=== PATIENT | male | born 1990 | race Caucasian/White ===

== ENCOUNTER → 2018-02-17 | Outpatient (CLI) | payer BC ==
--- NOTE | 2018-02-17 08:38 | DIAGNOSTIC IMAGING REPORT ---
(TESTICULAR) SCROTUM-CONT CLINICAL HISTORY: 28 years-old Male presenting with LEFT SIDED TESTICULAR PAIN. TECHNIQUE: Real-time grayscale and color and spectral Doppler ultrasound imaging of the scrotum was performed. COMPARISON: None. FINDINGS: Right testis: Normal echogenicity and echotexture. Testis measures 5.1 x 2.8 x 2.4 cm. Normal color Doppler flow and arterial and venous waveforms in the testicular parenchyma. Epididymal head normal. No hydrocele. No varicocele. Left testis: Normal echogenicity and echotexture. Testis measures 5.8 x 3.3 x 2.5 cm. Normal color Doppler flow and arterial and venous waveforms in the testicular parenchyma. Diminutive cyst noted in the epididymal head, either epididymal cyst or spermatocele. No hydrocele. No varicocele. Symmetric perfusion of the testes. IMPRESSION: No evidence of testicular torsion. Electronically signed by: Shine Chen M.D. 02/17/2018 8:36 AM Dictated Date/Time: 02/17/2018 8:35 AM
--- NOTE | 2018-02-17 08:39 | DIAGNOSTIC IMAGING REPORT ---
ABDOMEN FOR HERNIA CLINICAL HISTORY: 28 years-old Male presenting with left groin pain, concern for hernia. TECHNIQUE: Real-time grayscale Doppler ultrasound imaging of the left inguinal region was performed for a focused evaluation at the site of clinical concern. COMPARISON: None. FINDINGS: In the region of the left groin, a reducible fat-containing hernia is suggested. No associated fluid. No evidence of bowel within the apparent hernia sac. IMPRESSION: 1. Findings suggest reducible fat-containing left inguinal hernia. Electronically signed by: Shine Chen M.D. 02/17/2018 8:37 AM Dictated Date/Time: 02/17/2018 8:36 AM
== END | disposition home or self-care (01) ==
LOC: C.ULTR 07:42
PROVIDERS: ATTEND Family Medicine
DX: N50.812 Left testicular pain (principal)

== ENCOUNTER 2018-03-09 05:17 | Observation (INO) | payer BC ==
[2018-03-03 13:50] VITALS: BMI 23.0
[~2018-03-09] VITALS: Ht 180.3 cm; Wt 74.0 kg
[2018-03-09] VITALS (15 sets, daily range): BP systolic 114–140; BP diastolic 53–76; PULSE 60–97; TEMP 36.6–36.9; O2SAT 94–99; Ht 180.3 cm; Wt 74.0 kg
[~2018-03-09 05:17] MED LIST: TRIA1SPR4 NAE
[2018-03-09] MEDS ORDERED: CEFAZOLIN 2000MG IV PUSH 15 ML IV SCH (06:00)
[2018-03-09] MEDS: LACTATED RINGER'S 1000ML 1,000 ML IV SCH ×7 (06:22→23:27)
[2018-03-09] MEDS ORDERED: MIDAZOLAM HCL 1 MG/ML 2ML VIAL ONE (06:28)
[2018-03-09] MEDS ORDERED: FENTANYL CITRATE INJ 50 MCG/1 ML 2 ML VIAL ONE (06:29)
[2018-03-09] MEDS ORDERED: ONDANSETRON INJ 2 MG/ML 2 ML VIAL ONE (06:32)
[2018-03-09] MEDS ORDERED: DEXAMETHASONE SOD INJ 4 MG/ML VIAL ONE (06:33)
[2018-03-09] MEDS ORDERED: LIDOCAINE HCL 2% 2 ML VIAL (20MG/ML) ONE (06:36)
[2018-03-09] MEDS ORDERED: PROPOFOL IV EMULSION 10 MG/ML 20 ML VIAL ONE (06:37)
[2018-03-09] MEDS ORDERED: BUPIVACAINE 0.5 % 5 MG/1 ML PF 10ML VIAL ONE (06:38)
--- NOTE | 2018-03-09 07:03 | History & Physical Bridge Note ---
H&P Re-Evaluation Bridge Note: I have examined the patient, reviewed the History & Physical and in the interval since the performance of the History & Physical I have noted the following changes of clinical significance: No changes noted
[2018-03-09] MEDS ORDERED: ONDANSETRON INJ 2 MG/ML 2 ML VIAL IV PRN ×3 (07:30→15:30)
[2018-03-09] MEDS ORDERED: HYDROmorphone INJ 0.5 MG/0.5 ML SYR IV PRN ×2 (07:30→15:30)
[2018-03-09] MEDS ORDERED: ATROPINE SULFATE 0.1 MG/ML 5ML SYR IV PRN (07:30)
[2018-03-09] MEDS ORDERED: EpHEDrine SULFATE INJ 50 MG/ML AMP IV PRN (07:30)
[2018-03-09] MEDS ORDERED: KETOROLAC TROMETHAMINE 30 MG/ML VIAL ONE (07:38)
[2018-03-09] MEDS ORDERED: GLYCOPYRROLATE INJ 0.2 MG/ML VIAL ONE (07:42)
[2018-03-09] MEDS ORDERED: NEOSTIGMINE METHYLSULFATE 5 MG/5 ML SYR ONE (07:42)
--- NOTE | 2018-03-09 08:35 | [facility] Post Operative Brief Note ---
Immediate Operative Summary Operative Date Mar 09, 2018. Pre-Operative Diagnosis Left Inguinal Hernia, Umbilical Hernia, possible right inguinal herina Post-Operative Diagnosis Bilateral Inguinal hernias, Umbilical herina Procedure(s) Performed Laparoscopic repair of Bilateral Inguinal Hernias with Mesh Open Repair of Umbilical Hernia Surgeon Dr. Vargas Tavares Sexual Assault Response Coordinator Surgeon(s) Shiva Valdez PA-c Estimated Blood Loss 4 ml Findings Consistent with Post-Op Diagnosis Left indirect hernia, right cord lipoma. Umbilical defect closed primarily Specimens None per surgeon Drains None Anesthesia Type General Complication(s) none Disposition Accompanied Pt To Recover: no Disposition: Recovery Room / PACU
--- NOTE | 2018-03-09 08:39 | [facility] Operative Report ---
Operative Report Operative Date Mar 09, 2018. Pre-Operative Diagnosis Left Inguinal Hernia, Umbilical Hernia, possible right inguinal herina Post-Operative Diagnosis Bilateral inguinal hernias, umbilical hernia Procedure(s) Performed Laparoscopic bilateral inguinal hernia repair (TEP), umbilical hernia repair Surgeon Dr. Vargas Tavares Cap And Hat Production Supervisor Surgeon(s) Shiva Valdez PA-c Estimated Blood Loss 4 ml Findings Indirect left inguinal hernia, right cord lipoma, umbilical hernia repaired primarily Specimens None per surgeon Drains None Anesthesia General Complication(s) None Disposition Recovery Room / PACU Indications 28-year-old male with left inguinal hernia and umbilical hernia, plan for laparoscopic left inguinal hernia repair, possible right, open umbilical hernia repair. The risks of the procedure were discussed, all questions were answered , and the patient agreed to proceed with surgery as planned. Description of Procedure The patient was properly identified, consented, and taken to the operating room where he was placed in the supine position. General endotracheal anesthesia was induced. SCDs and a safety belt were placed. A bear catheter was placed. Preoperative antibiotics were administered. The patient's groins and abdomen were prepped and draped in the standard sterile fashion. Surgical timeout was performed and all parties were in agreement that this was the correct patient and procedure to be performed and we continued as planned. A curvilinear infraumbilical incision was made with electrocautery and deepened down to the fascia with blunt dissection. A transverse incision was made in the anterior rectus sheath on the right. The rectus muscle was pulled laterally exposing the posterior rectus sheath. A large Selam was used to bluntly dissect the preperitoneal space down to the pubic symphysis. This was then replaced with a laparoscopic preperitoneal dissection balloon, which was inflated under direct visualization and held in place for approximately 30 seconds. This was then removed and the preperitoneal space was insufflated with carbon dioxide which the patient tolerated without incident. Two 5 mm ports were then placed in the midline. Dissection started on the left, beginning laterally at the anterior superior iliac spine. Luis's ligament was then dissected medially. The cord structures were circumferentially dissected. A small indirect hernia was noted. It was dissected away from the cord structures. The contralateral side was then dissected in a similar manner, and cord lipoma and small indirect hernia was noted. Progrip mesh was placed on the bilaterally and covered the direct, indirect, and femoral spaces. The mesh was held in place, the ports were removed, and the space was allowed to collapse. The anterior rectus sheath fascia was closed with 0 Vicryl suture. The umbilical stalk was circumferentially dissected with a Selam, and divided below the level of the skin. A 0.7 cm fascial defect was encountered. The hernia was reduced. The fascia anteriorly and posteriorly was cleared of investing tissue for several centimeters. Hemostasis was achieved within the wound. The hernia defect was closed primarily with interrupted 0 Nurolon sutures. The wound was irrigated and hemostasis confirmed. The umbilicus was tacked down to the fascia with 3-0 Vicryl sutures. Local anesthetic in the form of 0.5% Marcaine was injected in the fascia and along the skin incision. The skin was closed with interrupted 3-0 Vicryl deep dermal sutures, followed by 4-0 Monocryl running subcuticular suture. Dermabond was placed over the wound. The skin of the remaining port sites were closed with 4-0 Monocryl subcuticular suture, and Dermabond was placed over the incisions. The patient was extubated in the operating room and taken to the PACU for recovery without apparent incident. Any air in the scrotum was reduced, and the testicles were confirmed to be in the scrotum. All sponge, instrument, and needle counts were correct at the conclusion of the procedure. The patient tolerated the procedure well. The physician's boiler assistant operator was present and scrubbed for the entire case. He was essential in positioning the patient, prepping and draping, retraction and exposure, driving the laparoscope, closure of the incisions, placement of the dressings. I attest to the content of the Intraoperative Record and any orders documented therein. Any exceptions are noted below.
[2018-03-09] MEDS ORDERED: OXYCODONE/ACETAMINOPHEN 5-325 TAB PO PRN ×2 (08:45→15:30)
[2018-03-09] MEDS ORDERED: MoRPHine SULFATE 4 MG/ML 1 ML CARP\\VIAL IV PRN (08:45)
[2018-03-09] MEDS ORDERED: OXYC-57 PO (08:45)
--- NOTE | 2018-03-09 08:47 | Discharge Instructions ---
Discharge Instructions Date of Service Mar 09, 2018. Visit Reason for Visit: Left Inguinal Hernia, Umbilical Hernia Discharge Discharge Diagnosis / Problem: hernia repair Discharge Goals Goal(s): Decrease discomfort Activity Recommendations Activity Limitations: as noted below Lifting Limitations: no more than 10 pounds Shower/Bathe: no limitations Driving or Machine Use: 1 week Anesthesia . Post Anesthesia Instructions: If you have had General Anesthesia or IV Sedation: * Do not drive today. * Resume driving when surgeon permits. * Do not make important decisions or sign legal documents today. * Call surgeon for: 1. Temperature elevations greater than 101 degrees F. 2. Uncontrollable pain. 3. Excessive bleeding. 4. Persistent nausea and vomiting. 5. Medication intolerance (nausea, vomiting or rash). * For nausea and vomiting use only clear liquids such as: tea, soda, bouillon until nausea subsides, then gradually increase diet as tolerated. * If you have any concerns or questions, call your surgeon's office. If physician is unavailable and it is an emergency, call 911 or go to the nearest emergency room. . Instructions / Follow-Up Instructions / Follow-Up Dr. Tavares in 1-2 weeks as planned, call [phone] if you have any questions or need to schedule Diet Recommendations Recommended Home Diet: no limitations Procedures Procedures Performed: Laparoscopic repair of Bilateral Inguinal Hernias with Mesh Open Repair of Umbilical Hernia Pending Studies Studies pending at discharge: no Medical Emergencies . Who to Call and When: Medical Emergencies: If at any time you feel your situation is an emergency, please call 911 immediately. . Non-Emergent Contact Non-Emergency issues call your: Surgeon Call Non-Emergent contact if: you have a fever, temperature is above 101.5, your pain is not controlled, wound has increased redness, you have any medication questions . . "Provider Documentation" section prepared by Shiva Valdez. .
[2018-03-09] MEDS: FENTANYL CITRATE INJ 50 MCG/1 ML 2 ML VIAL IV PRN ×4 (08:55→09:12)
--- NOTE | 2018-03-09 09:33 | Anesthesiology Progress Note ---
Anesthesia Post Op Note Date & Time Mar 09, 2018 at 09:34 Vital Signs Pain Intensity: 4 Vital Signs Past 12 Hours Date Time Temp Pulse Resp B/P (MAP) Pulse Ox O2 Delivery O2 Flow Rate FiO2 03/09/18 09:30 36.5 60 12 136/65 99 Room Air 03/09/18 09:20 57 12 132/60 99 Room Air 03/09/18 09:10 71 16 126/70 99 Oxymask 10 03/09/18 09:00 74 16 142/64 100 Oxymask 10 03/09/18 08:51 36.3 81 16 140/86 100 Oxymask 10 03/09/18 05:51 36.6 62 16 117/76 (90) 99 Room Air Notes Mental Status: alert / awake / arousable, participated in evaluation Pt Amnestic to Procedure: Yes Nausea / Vomiting: adequately controlled Pain: adequately controlled Airway Patency, RR, SpO2: stable & adequate BP & HR: stable & adequate Hydration State: stable & adequate Anesthetic Complications: no major complications apparent
[2018-03-09] MEDS ORDERED: ROCURONIUM BROMIDE 10 MG/ML 5 ML VIAL ONE (12:06)
[2018-03-09] MEDS ORDERED: PROMETHAZINE HCL INJ 12.5 MG in SODIUM CHLORIDE 0.9% 50ML 50 ML IV PRN (15:30)
[2018-03-09] MEDS ORDERED: HYDROmorphone INJ 1 MG/ML SYR IV PRN (15:30)
[2018-03-09] MEDS ORDERED: IV FLUIDS COMPLETED PRN (16:00)
[2018-03-09] MEDS ORDERED: PROMETHAZINE HCL 25 MG TAB PO PRN (17:30)
[2018-03-09] MEDS ORDERED: NURSING VERBAL MED ORDER ONE (17:30)
[2018-03-09] MEDS: HYDROCODONE/ACETAMIN 5/325MG TAB PO PRN ×2 (17:58→21:53)
[2018-03-10 03:26] VITALS: BP 127/69; PULSE 52; TEMP 36.2; O2SAT 97
[2018-03-10] MEDS: HYDROCODONE/ACETAMIN 5/325MG TAB PO PRN ×3 (03:32→13:14)
[2018-03-10] MEDS ORDERED: HYDR-5688 PO (06:03)
--- NOTE | 2018-03-10 06:40 | Surgery Progress Note ---
Surgery Progress Note Date of Service Mar 10, 2018. Subjective Post OP Day: 1 + feeling well, + ambulating (OOB as tolerated), + flatus, + pain controlled, + nausea (Yesterday - resolved), + diet (Tolerating full liquids), No bowel movement, No vomiting Objective Vital Signs: Date Time Temp Pulse Resp B/P (MAP) Pulse Ox O2 Delivery O2 Flow Rate FiO2 03/10/18 03:26 36.2 52 14 127/69 (88) 97 Room Air 03/10/18 00:25 Room Air 03/09/18 23:16 36.8 62 14 122/68 (86) 97 Room Air 03/09/18 19:15 36.9 61 18 131/74 (93) 96 Room Air 03/09/18 18:35 36.9 68 17 126/74 (91) 99 Room Air 03/09/18 17:23 36.9 60 17 124/73 (90) 98 Room Air 03/09/18 17:00 99 Room Air 03/09/18 16:47 36.7 61 16 125/72 (89) 98 Room Air 03/09/18 16:15 99 Room Air 03/09/18 16:15 36.6 64 18 132/76 (94) 99 Room Air 03/09/18 14:55 36.7 68 16 119/69 99 Room Air 03/09/18 13:42 36.8 72 18 119/62 98 Room Air 03/09/18 12:43 81 18 116/66 98 Room Air 03/09/18 11:40 36.6 78 18 114/53 96 Room Air 03/09/18 10:40 71 18 129/69 99 Room Air 03/09/18 10:10 97 18 137/72 94 Room Air 03/09/18 09:40 36.6 81 18 140/61 98 Room Air 03/09/18 09:30 36.5 60 12 136/65 99 Room Air 03/09/18 09:20 57 12 132/60 99 Room Air 03/09/18 09:10 71 16 126/70 99 Oxymask 10 03/09/18 09:00 74 16 142/64 100 Oxymask 10 03/09/18 08:51 36.3 81 16 140/86 100 Oxymask 10 General Appearance: WD/WN, no apparent distress Head: normocephalic, atraumatic Respiratory/Chest: no respiratory distress Abdomen: soft, no organomegaly, + distended (mild), + tenderness (Incisional mild-moderate) Incision(s): clean, dry, intact, no erythema, no drainage Assessment & Plan POD #1 s/p Laparoscopic bilateral inguinal hernia repair (TEP), umbilical hernia repair Pain controlled. Abdomen soft, mildly distended, incisional TTP (expected). Incisions c/d/i. Tolerating full liquids, nausea yesterday since resolved. Urinating without issue. Patient would like to keep full liquids for breakfast - likely advance for lunch. Probable discharge later today if he continues to do well. Patient contributed nausea to percocet, has since been tolerating [place] w/o nausea. d/c prescription changed from percocet to norco. - patient's girlfriend has Percocet script - nursing to hold norco script until perocet script is returned. Contact with questions or concerns.
[2018-03-10 06:43] VITALS: BP 118/66; PULSE 51; TEMP 36.5; O2SAT 97
[2018-03-10 07:41] VITALS: BP 127/74; PULSE 59; TEMP 36.4; O2SAT 98
[2018-03-10 08:21] VITALS: O2SAT 98
[2018-03-10] MEDS ORDERED: TRIAMCINOLONE ACET NASAL SPRAY 10.8ML BTL NAE SCH (09:00)
[2018-03-10 11:48] VITALS: BP_SYST 122; BP_DIAS 72; BP_DIAS 73; PULSE 50; PULSE 52; TEMP 36.5; TEMP 36.7; O2SAT 95; O2SAT 98
[2018-03-10 13:06] VITALS: BP 122/72; PULSE 50; TEMP 36.7; O2SAT 98
--- NOTE | 2018-03-15 20:41 | DISCHARGE SUMMARY ---
PRIMARY DISCHARGE DIAGNOSES: 1. Bilateral inguinal hernias. 2. Umbilical hernia. 3. Postoperative urinary retention. 4. Postoperative nausea. PROCEDURE PERFORMED: Laparoscopic bilateral inguinal hernia repairs (TEP) and umbilical hernia repair. HOSPITAL COURSE: The patient is a 28-year-old male brought in through same day and taken to the operating room for laparoscopic repair of bilateral inguinal hernias and open umbilical hernia repair. The procedure was well tolerated. While in same day, he had urinary retention, required straight catheterization later that afternoon. He also had persistent nausea despite multiple doses of antiemetics. He was, therefore, admitted to surgical floor for overnight observation. After catheterization, he had no further difficulties voiding. By postoperative day 1, his nausea had improved. He was tolerating an advancing diet. He thought the Percocet was contributing to his nausea, we changed to [place], which seemed to be better tolerated. By the afternoon, he was stable for discharge. His abdomen was soft. Incisions were dry. DISCHARGE INSTRUCTIONS: Discharge home. Follow up with Dr. Tavares in 2 weeks as planned. DISCHARGE MEDICATIONS: [place] 1-2 tablets every 4 hours as needed, can resume his home Nas[place] spray daily. MTDD
== END 2018-03-10 13:55 | disposition home or self-care (01) ==
LOC: C.ACU 05:17 → C.MSN 15:37 → ENRESERV 15:57
PROVIDERS: ADMIT Surgery; ATTEND Surgery
DX: K40.20 Bilateral inguinal hernia, without obstruction or gangrene, not specified as recurrent (principal); K42.9 Umbilical hernia without obstruction or gangrene; D17.6 Benign lipomatous neoplasm of spermatic cord; R33.9 Retention of urine, unspecified; R11.0 Nausea